=== PATIENT | female | born 1990 | race Caucasian/White ===

== ENCOUNTER 2025-06-03 09:40 | Outpatient (CLI) | payer OTHER, SELFPAY ==
[2025-06-03 10:38] LABS: Hemoglobin A1C 4.8 % (<5.7)
[2025-06-03 11:32] LABS: Alanine Aminotransferase 29 U/L (6-35); Albumin Level 3.9 g/dL (3.5-5.1); Alkaline Phosphatase 64 U/L (38-126); Anion Gap 8 mmol/L (4-12); Aspartate Amino Transferase 39 U/L (14-36); Bilirubin,Total 0.4 mg/dL (0.2-1.3); Blood Urea Nitrogen 9 mg/dL (7-17); Calcium 9.2 mg/dL (8.4-10.2); Carbon Dioxide 27 mmol/L (22-30); Chloride 103 mmol/L (98-107); Estimated Glomerular Filt Rate > 60; Glucose 88 mg/dL (65-110); Potassium 3.9 mmol/L (3.4-5.0); Sodium 138 mmol/L (137-145); Total Protein 7.5 g/dL (6.3-8.2)
[2025-06-03 12:04] LABS: Thyroid Stimulating Hormone 1.420 uIU/mL (0.465-4.680)
== END 2025-06-03 09:41 | disposition home or self-care (01) ==
PROVIDERS: Visit Provider Obstetrics & Gynecology
DX: N92.6 Irregular menstruation, unspecified (principal)
CPT/HCPCS: 36415; 80053; 83036; 84146; 84443

== ENCOUNTER 2025-07-24 15:39 | Outpatient (CLI) | payer OTHER, SELFPAY | END 2025-07-24 15:40 | disposition home or self-care (01) | PROVIDERS: Visit Provider Obstetrics & Gynecology | DX: N92.6 Irregular menstruation, unspecified (principal) | CPT/HCPCS: 84144 ==

== ENCOUNTER 2025-09-10 11:58 | Outpatient (CLI) | payer OTHER, SELFPAY | END 2025-09-10 11:59 | disposition home or self-care (01) | LOC: ANHLAB 12:00 | PROVIDERS: Visit Provider Obstetrics & Gynecology | DX: N92.6 Irregular menstruation, unspecified (principal) | CPT/HCPCS: 84144 ==